=== PATIENT | female | born 1950 | race Caucasian/White ===

== ENCOUNTER 2020-08-01 07:34 | Day surgery (SDC) | payer MEDICARE ==
[2020-07-29 10:39] VITALS: BMI 22.8
[~2020-08-01 07:34] MED LIST: CYCLOPENTOLATE 1% OPHTH SOLN 2 ML BTL OP PRN; LACTATED RINGERS 1,000 ML IV SCH; MOXIFLOXACIN HCL 0.5% DROPS 3 ML BTL OP PRN; PHENYLEPHRINE 2.5% OPHTH DRP 2ML OP PRN; TETRACAINE 0.5% OPHTH (PF) DROPS 4 ML BTL OP PRN; TIMOLOL 0.5% OPHTH DROPS 5 ML BTL OP PRN
[2020-08-01 08:06] VITALS: RESP 16; TEMP 97.8
[2020-08-01] MEDS ORDERED: LIDOCAINE 1% (10MG/ML) FOR IV START INTRADERMA ONE (08:06)
[2020-08-01] MEDS ORDERED: MOXIFLOXACIN HCL 0.5% DROPS 3 ML BTL RIGHT EYE ONE (08:44)
[2020-08-01] MEDS ORDERED: TIMOLOL 0.5% OPHTH DROPS 5 ML BTL RIGHT EYE ONE (08:44)
[2020-08-01] MEDS ORDERED: DUOVISC KIT (GREEN BOX) INTRAOCULA ONE (08:45)
[2020-08-01] MEDS ORDERED: MIDAZOLAM 2 MG/2 ML VIAL ONE (08:46)
[2020-08-01] MEDS ORDERED: fentaNYL (PF) 50 MCG/ML 2 ML AMP ONE (08:46)
[2020-08-01] MEDS ORDERED: LIDOCAINE 1% (PF) 10MG/ML VIAL MISCELLANE ONE (08:54)
[2020-08-01] MEDS ORDERED: BALANCED SALT IRRIG SOLN COMB2 15 ML IRRIG.SOLN IRRIGATION ONE (08:56)
[2020-08-01] MEDS ORDERED: EPINEPHrine (PF) 0.3 ML in BALANCED SALT IRRIG SOLN COMB2 500 ML IRRIGATION ONE (08:57)
--- NOTE | 2020-08-01 09:13 | P.OP ---
Date of Procedure: 08/01/20 Preoperative Diagnosis: Ns & Fuch's Postoperative Diagnosis: same Procedure(s) Performed: PIOL, OD Implants: [id number] 28.50 Anesthesia: MAC Surgeon: Paul Morgan Pathology: none sent Condition: stable Disposition: same day Indications for Procedure: blurry vision Operative Findings: no complications
[2020-08-01 09:28] VITALS: BP 111/67; PULSE 74
--- NOTE | 2020-08-02 06:42 | OP ---
OPERATIVE REPORT DATE OF SERVICE: 08/01/2020 SURGEON: Dr. Paul Morgan PREOPERATIVE DIAGNOSIS: Nuclear sclerosis and Fuchs corneal dystrophy. POSTOPERATIVE DIAGNOSIS: Nuclear sclerosis and Fuchs corneal dystrophy. OPERATION: Clear cornea phacoemulsification of cataract and intraocular lens implant of the right eye. ESTIMATED BLOOD LOSS: Zero. SPECIMEN TAKEN: None. NARRATIVE: After obtaining the appropriate consent, the patient was brought to the Operating Room where the patient was placed under cardiac monitoring and prepped and draped in the usual sterile manner. At the 11 o'clock position a 15 degree super sharp blade was used to create a paracentesis followed by instillation of 1% Xylocaine MPF 50:50 mix with BSS into the anterior chamber. This was followed by Duovisc to stabilize the anterior chamber. At the 9 o'clock position a self-sealing corneal flap incision was created using 2.8 mm maia keratome. A cystotome was used to initiate a continuous tear capsulorrhexis which was completed with the Utrata forceps. A Binkhorst cannula was used to hydrodissect the lens nucleus followed by hydrodelineation. Phacoemulsification of the lens was performed utilizing phacochop in 37.94 seconds at 16% power. The remaining cortical material was removed using the irrigation aspiration mode followed by additional 1% Xylocaine MPF into the anterior chamber followed by viscoelastic to stabilize the capsular bag. A Bausch and Lomb MX 60E 28.5 diopters posterior chamber lens was placed into the capsular bag without difficulty. The remaining viscoelastic material was removed from the anterior chamber with the irrigation/aspiration. Balanced salt solution was used to normalize the intraocular pressure. The incision was checked for watertight integrity. The patient then received two drops of 0.5% timolol followed by two drops Vigamox, was lightly patched and shielded in the usual manner. There were no complications from the procedure. The patient tolerated the procedure well and was returned to recovery in good condition. MMODL / IJN: [id number] /
== END 2020-08-01 09:50 | disposition home or self-care (01) ==
LOC: OR 07:34 → MERGE 08:05 → EDBD 08:05 → OR 09:50
PROVIDERS: ATTEND Ophthalmology
DX: H25.13 Age-related nuclear cataract, bilateral (principal); H18.513 Endothelial corneal dystrophy, bilateral; H52.01 Hypermetropia, right eye; H52.02 Hypermetropia, left eye; H52.4 Presbyopia; H04.129 Dry eye syndrome of unspecified lacrimal gland; F17.210 Nicotine dependence, cigarettes, uncomplicated; F41.9 Anxiety disorder, unspecified; K21.9 Gastro-esophageal reflux disease without esophagitis; Z97.2 Presence of dental prosthetic device (complete) (partial); Z83.3 Family history of diabetes mellitus; Z80.9 Family history of malignant neoplasm, unspecified; Z83.518 Family history of other specified eye disorder
CPT/HCPCS: 66984; C1780; J2250; J0171; J3010; J2001

== ENCOUNTER 2020-09-17 06:15 | Day surgery (SDC) | payer MEDICARE ==
[2020-09-16 11:47] VITALS: BMI 21.9
[~2020-09-17 06:15] MED LIST changes: -CYCLOPENTOLATE 1% OPHTH SOLN 2 ML BTL OP PRN; -LACTATED RINGERS 1,000 ML IV SCH; -PHENYLEPHRINE 2.5% OPHTH DRP 2ML OP PRN; -TETRACAINE 0.5% OPHTH (PF) DROPS 4 ML BTL OP PRN; -TIMOLOL 0.5% OPHTH DROPS 5 ML BTL OP PRN; +TOBRA-DEXAMET 0.3-0.1% OPHTH DROPS 2.5 ML BTL OPHTHALMIC PRN
[2020-09-17] MEDS: PILOCARPINE 2% OPHTH DROPS 15 ML BTL OP PRN ×3 (06:50→07:08)
[2020-09-17 07:00] VITALS: TEMP 98.6
[2020-09-17] MEDS ORDERED: LACTATED RINGERS 1,000 ML IV ONE (07:00)
[2020-09-17] MEDS ORDERED: MIDAZOLAM 2 MG/2 ML VIAL IVP ONE (07:13)
[2020-09-17] MEDS ORDERED: fentaNYL (PF) 50 MCG/ML 2 ML AMP ONE (07:25)
[2020-09-17] MEDS ORDERED: MIDAZOLAM 2 MG/2 ML VIAL ONE (07:25)
[2020-09-17] MEDS ORDERED: TETRACAINE 0.5% OPHTH (PF) DROPS 4 ML BTL ONE (07:25)
[2020-09-17] MEDS ORDERED: BALANCED SALT IRRIG SOLN COMB2 15 ML IRRIG.SOLN IRRIGATION ONE (07:47)
[2020-09-17] MEDS ORDERED: ATROPINE OPHTH SOLN 1% 2 ML BTL RIGHT EYE ONE (07:47)
[2020-09-17] MEDS ORDERED: TRYPAN BLUE 0.06% SYRINGE 0.5 ML SYRINGE INTRAOCULA ONE (07:48)
[2020-09-17] MEDS ORDERED: BALANCED SALT IRRIG SOLN COMB2 500 ML IRRIGATION ONE (07:50)
--- NOTE | 2020-09-17 08:59 | P.OP ---
Date of Procedure: 09/17/20 Preoperative Diagnosis: Fuch's dystrophy Postoperative Diagnosis: same Procedure(s) Performed: DMEK Anesthesia: MAC Surgeon: Paul Morgan Pathology: none sent Condition: stable Disposition: same day Indications for Procedure: corneal failure Operative Findings: No complications
[2020-09-17] MEDS ORDERED: ACETAMINOPHEN TAB 325 MG TAB ONE (10:24)
[2020-09-17] MEDS ORDERED: ACETAMINOPHEN TAB 325 MG TAB PO STA (10:28)
[2020-09-17] MEDS ORDERED: ACETAMINOPHEN TAB 325 MG TAB PO ONE (10:30)
[2020-09-17] MEDS ORDERED: acetaZOLAMIDE 250 MG TAB PO SCH (10:45)
[2020-09-17] MEDS ORDERED: ONDANSETRON 4 MG/2 ML VIAL ONE (11:46)
[2020-09-17] MEDS ORDERED: ONDANSETRON 4 MG/2 ML VIAL IVP ONE (11:50)
[2020-09-17 12:21] VITALS: BP 112/70; PULSE 69; RESP 18
--- NOTE | 2020-09-18 22:09 | OP ---
OPERATIVE REPORT DATE OF SURGERY: September 17, 2020. PROCEDURE PERFORMED: Descemet's membrane endothelial keratoplasty of the right eye. 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 SURGEON: Dr. Paul Morgan. ANESTHESIA: Topical. ESTIMATED BLOOD LOSS: None. SPECIMEN: Taken none. NARRATIVE: After obtaining the appropriate consent, the patient was brought to the operating room. There she was placed on cardiac monitoring prepped and draped in the usual sterile manner. She was approached from her right temporal side. Four paracenteses in each of the diagonal quadrants was accomplished using an MVR blade. Through this opening, 1% lidocaine MPF 50/50 mix with balanced salt solution was injected into the anterior chamber. This was followed by an installation of Trypan blue which was allowed to stay in the eye for 3 minutes. This was then irrigated away with balanced salt solution. The anterior chamber was then stabilized using Amvisc and at the 9 o'clock position, a 2.75 mm keratome was used to create a self-sealing corneal flap incision. Minor adjustment was made to this incision to allow for a Richter tube to be admitted into this temporal incision. Under the viscoelastic, a Anne Sinskey hook was used was used to score the cornea at an 8 and a quarter diameter. This was previously identified using a Katina trephination blade, which had been then marked with gentian ade. Descemet's stripping then began after scoring the endothelium and the endothelial tissue was removed within this area completely. This was followed by removal of all the remaining viscoelastic under irrigation aspiration very well and examination of the base of the patient's cornea to inspect for any remaining Descemet's membrane within the area placement. [facility] then [facility] Tissue Identifier was [id number]. This was prepared donor tissue already placed within a Richter tube that had been previously stained and the stroma marked. This was carefully brought to the field and the tissue was injected into the anterior chamber without difficulty. The temporal incision was then tamponade slightly and 10-0 nylon suture was used to then close the temporal incision ensuring watertight integrity. Using various methods of controlling for the depth of the anterior chamber, the donor tissue was rotated and flipped to the proper stromal side up and then buoyed into place with air followed by FF6, which was then used to pressurized the eye and left above normal intra-ocular pressure for approximately 15 minutes. After the time had elapsed, the eye was then brought to normal intraocular pressure and approximately 50% of the gas was removed from the anterior chamber. At that point in time, the patient had then received 2 drops of 0.5% moxifloxacin 2 drops of 0.5% timolol and 2 drops of 1% atropine. She was then left in the supine position and returned to recovery to stay in place for approximately 1 hour. During the course of her early recovery, she began to experience a significant discomfort from the eye and when brought up to the slit-lamp identified that there was a 90% or better size gas bubble in the anterior chamber. While at the slit lamp using standard [place] 27-gauge cannula, an exchange of gas for aqueous or balanced salt solution was used to bring the level closer to 65 or 70% gas. She also received 500 mg of Diamox at that point in time. She was asked to lie in the supine position for an additional half an hour to 45 minutes and once again brought to the slit lamp with a marked relief of the physical discomfort from within the eye and was released to home in good condition. MMODL / IJN: [id number] / RIAN
== END 2020-09-17 12:36 | disposition home or self-care (01) ==
LOC: OR 06:15
PROVIDERS: ATTEND Ophthalmology
DX: H18.513 Endothelial corneal dystrophy, bilateral (principal); H25.12 Age-related nuclear cataract, left eye; H52.01 Hypermetropia, right eye; H52.02 Hypermetropia, left eye; H52.4 Presbyopia; Z98.49 Cataract extraction status, unspecified eye; Z96.1 Presence of intraocular lens; F17.210 Nicotine dependence, cigarettes, uncomplicated; Z83.518 Family history of other specified eye disorder; Z80.9 Family history of malignant neoplasm, unspecified; Z83.3 Family history of diabetes mellitus; Z97.2 Presence of dental prosthetic device (complete) (partial); Z79.899 Other long term (current) drug therapy; Z91.040 Latex allergy status; Z91.09 Other allergy status, other than to drugs and biological substances
CPT/HCPCS: 65756; 87070; 87205; 87075; V2785; J2250; J2405; J3010

== ENCOUNTER 2021-02-04 08:05 | Day surgery (SDC) | payer MEDICARE ==
[2021-02-02 14:31] VITALS: BMI 21.2
[~2021-02-04 08:05] MED LIST changes: +LACTATED RINGERS 1,000 ML IV SCH; +LIDOCAINE 1% (10MG/ML) FOR IV START INTRADERMA PRN; +TETRACAINE 0.5% OPHTH (PF) DROPS 4 ML BTL OP PRN; +TIMOLOL 0.5% OPHTH DROPS 5 ML BTL OP PRN; -TOBRA-DEXAMET 0.3-0.1% OPHTH DROPS 2.5 ML BTL OPHTHALMIC PRN
[2021-02-04 08:33] VITALS: TEMP 98.6
[2021-02-04] MEDS: CYCLOPENTOLATE 1% OPHTH SOLN 2 ML BTL OP PRN ×3 (08:37→08:49)
[2021-02-04] MEDS: PHENYLEPHRINE 2.5% OPHTH DRP 2ML OP PRN ×3 (08:40→08:52)
[2021-02-04] MEDS ORDERED: ONDANSETRON 4 MG/2 ML VIAL ONE (09:26)
[2021-02-04] MEDS ORDERED: fentaNYL (PF) 50 MCG/ML 2 ML AMP ONE (09:26)
[2021-02-04] MEDS ORDERED: MIDAZOLAM 2 MG/2 ML VIAL ONE (09:26)
[2021-02-04] MEDS ORDERED: HYALURONATE SODIUM INTRAOCULAR 1 EACH SYRINGE (12MG/ML) INTRAOCULA ONE (09:51)
[2021-02-04] MEDS ORDERED: BALANCED SALT IRRIG SOLN COMB2 15 ML IRRIG.SOLN IRRIGATION ONE ×2 (09:51)
[2021-02-04] MEDS ORDERED: EPINEPHrine (PF) 0.3 ML in BALANCED SALT IRRIG SOLN COMB2 500 ML IRRIGATION ONE (09:59)
[2021-02-04] MEDS ORDERED: TRYPAN BLUE 0.06% SYRINGE 0.5 ML SYRINGE INTRAOCULA ONE (10:26)
[2021-02-04] MEDS ORDERED: ACETYLCHOLINE CHLORIDE 10 MG/ML 2 ML KIT INTRAOCULA ONE (10:27)
[2021-02-04] MEDS ORDERED: LIDOCAINE 1% (PF) 10MG/ML VIAL MISCELLANE ONE (10:27)
[2021-02-04] MEDS ORDERED: FLUORESCEIN STRIPS 1 MG STRIP LEFT EYE ONE (10:28)
--- NOTE | 2021-02-04 11:16 | P.OP ---
Date of Procedure: 02/04/21 Preoperative Diagnosis: NS & NAG & 2 endothelial dystrophy Postoperative Diagnosis: same Procedure(s) Performed: PIOL & DMEK, OS Implants: MX60E 32.00 Anesthesia: MAC Surgeon: Paul Morgan Pathology: none sent Condition: stable Disposition: same day Indications for Procedure: blurry vision and endothelial failure. Operative Findings: no complications
[2021-02-04 11:18] VITALS: RESP 16
[2021-02-04 12:00] VITALS: BP 96/61; PULSE 79
--- NOTE | 2021-02-05 15:14 | OP ---
OPERATIVE REPORT DATE OF SURGERY: 02/04/2021. PROCEDURE: Triple procedure of the patient's left eye. PREOPERATIVE DIAGNOSIS: Nuclear sclerosis, narrow anterior chamber, endothelial failure secondary to narrow anterior chamber and intermittent glaucoma problems. POSTOPERATIVE DIAGNOSIS: Nuclear sclerosis, narrow anterior chamber, endothelial failure secondary to narrow anterior chamber and intermittent glaucoma problems. SURGEON: Dr. Paul Morgan. ANESTHESIA: Topical. ESTIMATED BLOOD LOSS: None. SPECIMEN TAKEN: None. NARRATIVE: After obtaining the appropriate consent, the patient was brought to the operating room. There she was placed under cardiac monitoring, prepped and draped in the usual sterile manner. She was approached from her left temporal side, and at 5 o'clock position an MVR blade was used to create a paracentesis port. Through this opening 1% Xylocaine MPF 50:50 mix with balanced salt solution was injected into the anterior chamber. This was followed by stabilization of the anterior chamber with Amvisc. At the 3 o'clock position, a 2.5 mm keratome was used to create a self-sealing corneal flap incision. This opening was confirmed to be adequate for a Richter tube lacrimal device by slightly enlarging the temporal incision with the keratome. Once this was confirmed adequate, a cystotome was advanced into the anterior chamber to begin a continuous tear capsulorrhexis which was then completed using the Utrata forceps. Hydrodissection and hydrodelineation of the lens was accomplished with phaco chop technique in 20.23 seconds at 19% power. Additional Xylocaine MPF was instilled into the anterior chamber, and this was followed by removal of the remaining cortical material from in and around the intraocular lens bag. Additional Amvisc was used to stabilize the capsular bag and a Bausch and Lomb MX 60E 32-diopter posterior chamber intraocular lens was then inserted into the capsular bag without difficulty. All remaining viscoelastic was then removed from in and around the intraocular lens as well as the anterior chamber. Miochol was then used to bring about pupillary miosis. Trypan blue was then injected into the anterior chamber and allowed to stay in place for about 3 minutes. This was then irrigated away and the anterior chamber was stabilized with additional Amvisc. An 8.25 mm circular keratome was placed on the patient's cornea gently and inscribed a ring centered over the patient's visual axis. Gentian ade was used to trevor the corneal ring as well as 3 additional paracenteses placed in the 8 o'clock, 4 o'clock and 2 o'clock positions of the eye. While still maintaining the anterior chamber with Amvisc, a Tomas Hook was then used to score the endothelial side of the patient's cornea, and using an endothelial corneal stripper tool, all endothelium from within this 8.25 mm diameter area was removed. The removed endothelial tissue was examined for complete removal within this involved area. All viscoelastic was thoroughly removed from the anterior chamber and balanced salt solution was used to maintain a shallow anterior chamber. The corneal transplant tissue identified as [id number], the [id number] cornea posterior layer that was preloaded in a Richter tube was then brought to the patient's eye. Ensuring that the anterior chamber was not too deep with aqueous, the tip of the Richter tube was then introduced into the temporal incision and the endothelial tissue was delivered into the anterior chamber, trapping the tissue by gently tamponading the temporal incision as the Richter tube was removed. A single 10- 0 nylon suture was then used to secure the temporal incision in an X fashion. Using various techniques, the donor tissue was unrolled and oriented in its proper orientation with endothelial side toward the anterior chamber. Once it was in good position, a small air bubble was placed centrally under the donor tissue to begin to secure it to the patient's own cornea. This was followed by using 20% SF6 as the gas to tamponade the eye for 20 minutes. Care was taken to ensure that the patient only briefly lost vision in the eye during the introduction of the gas into the anterior chamber. After the 20 minutes, excess SF6 was removed from the anterior chamber followed by deepening the anterior chamber with balanced salt solution, arriving at approximately a 50% SF6 gas bubble remaining within the anterior chamber. The patient received at this stage two drops of 0.5% moxifloxacin as well as two drops of 0.5% timolol, and the eye was shielded without a patch. She was then transferred to the recovery area, where she remained supine for the next hour, whereupon she was asked to sit upright to a slit-lamp microscope and was examined for proper position and appropriate amount of remaining gas within the anterior chamber. Discharge orders were then issued at this point, as there were no difficulties or complications encountered at this stage of the procedure, and she was discharged to home in good condition. MMODL / IJN: [id number] /
== END 2021-02-04 12:18 | disposition home or self-care (01) ==
LOC: OR 08:05
PROVIDERS: ATTEND Ophthalmology
DX: H18.512 Endothelial corneal dystrophy, left eye (principal); H40.9 Unspecified glaucoma
CPT/HCPCS: 65756; 87070; 87205; V2785; C1780; J2250; J2405; J0171; J3010; J2001; 87075